=== PATIENT | male | born 1985 | race Caucasian/White ===

== ENCOUNTER 2017-10-24 16:59 | Emergency (ER) | payer OTHER ==
[~2017-10-24] VITALS: Ht 177.8 cm; Wt 92.0 kg
[2017-10-24 17:01] VITALS: BP 98/70; PULSE 71; RESP 16; TEMP 97.3; O2SAT 100
[2017-10-24] MEDS ORDERED: CLIN300C5 PO (17:13)
[2017-10-24] MEDS ORDERED: IBUP1TAB7 PO (17:13)
[2017-10-24] MEDS ORDERED: PERI0.126 SWISH-SPIT (17:13)
--- NOTE | 2017-10-24 17:14 | PD ---
HPI Chief Complaint: Oral / Dental Pain or Problem Time Seen by Provider: 17:04 Travel History International Travel<30 days: No Contact w/Intl Traveler<30days: No Traveled to known affect area: No History of Present Illness HPI 32-year-old male presents to the emergency department for evaluation of back left molar pain that started 2 weeks ago. He has not yet been able to follow- up with a dentist. He states the pain is gradually worsening. He denies any trauma. Current pain is 9/10, aching and throbbing, without radiation. He has no chronic medical problems and takes no prescribed medications. No exacerbating or alleviating factors. Mild severity. PFSH Social History Alcohol Use: No Tobacco Use: Yes Substance Use: No Allergies-Medications (Allergen,Severity, Reaction): Coded Allergies: No Known Allergies (Unverified , 10/24/17) Review of Systems Except as stated in HPI: all other systems reviewed are Neg Physical Exam Narrative GENERAL: Well-nourished, well-developed male patient, ambulatory. Afebrile. SKIN: Focused skin assessment warm/dry. HEAD: Normocephalic. Atraumatic. No facial swelling. ENT: Mucosa pink and moist. No erythema or exudates. No uvular edema. No uvular , palatal, or tonsillar deviation. Airway patent. Nasal turbinates appear normal without nasal blood, purulent drainage or septal hematoma. Bilateral tympanic membranes clear without erythema or perforation. Patient has tenderness to the gingiva below the left back lower molar. This molar is chipped and decayed. No Marcello's angina. EYES: No scleral icterus. No injection or drainage. NECK: Supple, trachea midline. No JVD or lymphadenopathy. CARDIOVASCULAR: Regular rate and rhythm without murmurs, gallops, or rubs. RESPIRATORY: Breath sounds equal bilaterally. No accessory muscle use. Lung sounds are clear to auscultation. GASTROINTESTINAL: Abdomen soft, non-tender, nondistended. MUSCULOSKELETAL: No cyanosis, or edema. Data Data Last Documented VS Vital Signs Date Time Temp Pulse Resp B/P (MAP) Pulse Ox O2 Delivery O2 Flow Rate FiO2 10/24/17 17:01 97.3 71 16 98/70 (79) 100 Orders Orders Ibuprofen (Motrin) (10/24/17 17:15) Clindamycin (Cleocin) (10/24/17 17:15) MDM Medical Decision Making Medical Screen Exam Complete: Yes Emergency Medical Condition: Yes Medical Record Reviewed: Yes Differential Diagnosis Dental abscess versus gingivitis versus dental caries versus Marcello's angina Narrative Course 32-year-old male presents to the emergency department for dental pain for 2 weeks. Physical exam is consistent with possible mild dental abscess. No evidence of Marcello's angina. Patient will be discharged prescription for clindamycin, ibuprofen, Peridex oral solution. He is given first dose of antibiotic and ibuprofen in the emergency department. He is instructed to follow-up with a dentist. He is to return here for any acute worsening of symptoms. The patient was discharged in stable condition with instructions, including return instructions and follow up instructions. Diagnosis Primary Impression: Dental abscess Referrals: Dentist call for appointment Patient Instructions: General Instructions Departure Forms: Tests/Procedures, Work Release Enter return to work date: October 26, 2017 Additional Instructions: Take antibiotic as directed until gone. Take ibuprofen as directed as needed with food for pain. Use Peridex oral solution as directed. Follow-up with a dentist. Return to the emergency department for any acute worsening of symptoms per Med/Other Pt SpecificInfo: Prescription(s) given Scripts Chlorhexidine Gluconate (Mouth) Liq (Peridex Liq) 0.12% Soln 15 ML SWISH-SPIT BID, #473 ML 0 Refills Prov: Mary Perez 10/24/17 Ibuprofen (Ibuprofen) 800 Mg Tab 800 MG PO TID Y for PAIN SCALE 1 TO 10, #21 TAB 0 Refills Prov: Mary Perez 10/24/17 Clindamycin (Clindamycin) 300 Mg Cap 300 MG PO Q6H for Infection for 10 Days, #40 CAP 0 Refills Prov: Mary Perez 10/24/17 Disposition: 01 DISCHARGE HOME Condition: Stable Mary Perez October 24, 2017 17:14
[2017-10-24] MEDS ORDERED: IBUPROFEN 800 MG TAB PO ONE (17:15)
[2017-10-24] MEDS ORDERED: CLINDAMYCIN 150 MG CAP PO ONE (17:15)
== END 2017-10-24 17:33 | disposition home or self-care (01) ==
LOC: NEPK 16:59
DX: K04.7 Periapical abscess without sinus (principal); Z72.0 Tobacco use
CPT/HCPCS: 99283